=== PATIENT | female | born 1950 | race Caucasian/White ===

== ENCOUNTER 2016-12-27 09:00 | Inpatient (IN) | payer MEDICARE, OTHER ==
[~2016-12-27] VITALS: Ht 163 cm; Wt 91.0 kg
[2016-12-28 06:15] LABS: HCT 26.7 % (37.0-47.0); HGB 8.5 g/dl (12.5-16.0); MCH 30.7 pg (25.0-31.0); MCHC 31.8 g/dL (32.0-36.0); MCV 96.4 fL (78.0-100.0); MPV 10.7 fL (6.0-9.5); RBC 2.77 M/uL (4.20-5.40); RDW 13.1 % (11.5-14.0); WBC 5.2 K/uL (4.0-10.5)
[2016-12-28 06:46] LABS: CREATININE 0.7 mg/dL (0.5-1.0); POTASSIUM 4.8 mmol/L (3.5-5.1)
[2016-12-29 05:51] LABS: HCT 25.4 % (37.0-47.0); HGB 8.3 g/dl (12.5-16.0); MCH 31.6 pg (25.0-31.0); MCHC 32.7 g/dL (32.0-36.0); MCV 96.6 fL (78.0-100.0); MPV 10.5 fL (6.0-9.5); RBC 2.63 M/uL (4.20-5.40); RDW 12.9 % (11.5-14.0); WBC 5.6 K/uL (4.0-10.5)
[2016-12-29] MEDS ORDERED: ATORVASTATIN CA40 MG PO (11:08)
[2016-12-29] MEDS ORDERED: SYNTHROID50 MCG PO (11:09)
[2016-12-29] MEDS ORDERED: CETIRIZINE HCL10 MG PO (11:09)
[2016-12-29] MEDS ORDERED: CITALOPRAM HBR40 MG PO (11:09)
[2016-12-29] MEDS ORDERED: LISINOPRIL-HCT1 EACH PO (11:10)
[2016-12-29] MEDS ORDERED: ALEVE220 M1 PO (11:10)
[2016-12-29] MEDS ORDERED: ASPIRIN CHEWABL81 MG PO (11:10)
[2016-12-29] MEDS ORDERED: VITAMIN D1000 UNI1 PO (11:10)
[2016-12-29] MEDS ORDERED: MELATONIN1 MG PO (11:11)
[2016-12-29] MEDS ORDERED: PERCOCET 5/3251 TAB PO (11:12)
[2016-12-29] MEDS ORDERED: XARELTO10 MG PO (11:12)
--- NOTE | 2016-12-30 15:26 | NUR ---
Social Service referral received 12/28 for geriatric social worker. Heel Pricker was unable to assess patient as patient was discharged 12/29. Patient discharged home with [facility].
== END 2016-12-29 13:10 | disposition home or self-care (01) | DRG 470 ==
LOC: FMS 09:00
PROVIDERS: Internal Medicine; ADMIT Legal Medicine
PROC: 0SR9049 Replacement of Right Hip Joint with Ceramic on Polyethylene Synthetic Substitute, Cemented, Open Approach (ICD-10-PCS; principal; 2016-12-27 09:00)
DX: M79.609 Pain in unspecified limb (principal); I10 Essential (primary) hypertension; D62 Acute posthemorrhagic anemia; M16.11 Unilateral primary osteoarthritis, right hip; E03.9 Hypothyroidism, unspecified; F41.9 Anxiety disorder, unspecified; G47.33 Obstructive sleep apnea (adult) (pediatric); I44.7 Left bundle-branch block, unspecified; Z22.322 Carrier or suspected carrier of Methicillin resistant Staphylococcus aureus
CPT/HCPCS: 36415; 73501; 76000; 80048; 86850; 86900; 86901; 94010; 94762; 97110; 97116; 97162; 97165; 97530-GP; 97535; C1776; J0131; J0697; J1170; J1885; J2270; J2405; J2704; J2795; J2916; J3010